=== PATIENT | male | born 1940 | race Caucasian/White ===

== ENCOUNTER 2017-12-20 23:59 | Emergency (ER) | payer MEDICARE, OTHER, SELFPAY ==
[2017-12-21] VITALS (8 sets, daily range): BP systolic 140–165; BP diastolic 75–103; PULSE 87–145; RESP 18–48; TEMP 37.1; O2SAT 92–100
[2017-12-21] MEDS: FAMOTIDINE 20 MG/50 ML PIGGYBACK 200 MG IV (02:08)
--- NOTE | 2017-12-21 03:13 | ED.ALLEREA ---
HPI - Allergic Reaction General Chief complaint: Allergic Reaction Stated complaint: Swollen Tongue Time Seen by Provider: 12/21/17 01:23 Source: patient and other (Air left) Mode of arrival: other (Air left) Limitations: no limitations History of Present Illness HPI narrative: This is a 77-year-old gentleman who comes to the emergency department for allergic reaction. Patient states about 10 o'clock this evening he had bee sting him on the side of the neck. He started having swelling of his neck, his tongue as well as itching and swelling of his hands and rash. Patient received epinephrine, Solu-Medrol prior to arrival and states that his symptoms have been improving. His tongue is still swollen but he states it is continuing to get better. Patient has not had symptoms like this before from a bee sting. He does have a history of atrial fibrillation, he denies any chest pain or shortness of breath. No wheezing. He states the itching Um and rash have improved. He states he did not wish to be transferred but they were insistent. Patient did not have any nausea or vomiting, no diarrhea. He is on medication for neuropathy, atrial fibrillation, hypertension and dyslipidemia as well as a history of CABG. Related Data Previous Rx's Medication Instructions Recorded atorvastatin 80 mg PO HS #90 tab 08/15/16 metoprolol succinate [Toprol XL] 25 mg PO QDAY #90 tab 08/15/16 colchicine 0.6 mg PO BID #60 tab 10/07/16 gabapentin [Neurontin] 0 PO SEE INSTRUCTIONS #180 cap 10/07/16 lisinopril-hydrochlorothiazide 0 PO QDAY #90 tab 10/07/16 tramadol 0 PO BID #112 tab 11/24/16 epinephrine [EpiPen 2-Caden] 0.3 mg IM Q10M PRN #1 each 12/21/17 famotidine [Pepcid] 20 mg PO BID 3 Days #6 tab 12/21/17 prednisone 50 mg PO DAILY #3 tab 12/21/17 Allergies Allergy/AdvReac Type Severity Reaction Status Date / Time No Known Drug Allergies Allergy Verified 12/21/17 00:10 Review of Systems Review of Systems All systems reviewed & are unremarkable except as noted in HPI and below ENT Ears, Nose, Mouth, and Throat: Reports lip swelling, Reports throat swelling and Reports tongue swelling Cardiovascular Denies chest pain and Denies dyspnea Respiratory Denies dyspnea and Denies wheezing Gastrointestinal Gastrointestinal: Denies cramping, Denies diarrhea, Denies nausea and Denies vomiting Genitourinary Denies difficulty urinating Integumentary/Breasts Reports rash, Reports skin swelling and Reports other (Hives) Allergic/Immunologic Reports as per HPI, Reports lip swelling, Reports throat swelling, Reports tongue swelling and Denies wheezing PFSH Surgical History Status post radical cystoprostatectomy Family History Father Cancer Heart disease Mother Blind Exam Narrative Exam Narrative: GEN: well nourished, well appearing elderly male, alert and oriented x 3, patient appears to be in mild distress. HEENT: Atraumatic, pupils are equal round reactive to light, extraocular movements are intact, nares are clear, TMs are clear with no fluid, there is no conjunctival pallor. Throat is clear without any exudates, patient does have swelling of the tongue, he has slightly dysarthric speech. No swelling of the lips. Patient also has swelling of the right side of the neck. As well as some erythema. There is no stinger present. HEART: Regular rate and rhythm without murmur, clicks, rubs. No carotid bruits, pulses are equal in upper and lower extremities LUNGS:Lungs clear to auscultation, no wheezes, rales, crackles, chest moves symmetrically ABD:bowel sounds normal, soft, non-tender, no guarding, rebound, rigidity, no masses noted, no hepatosplenomegaly MSCL: Non-tender, no muscle atrophy,full range of motion NEURO:CN 2-12 intact, sensation normal Initial Vital Signs Initial Vital Signs: Vital Signs Temperature 98.7 F 12/21/17 00:10 Pulse Rate 107 H 12/21/17 00:10 Respiratory Rate 26 H 12/21/17 00:10 Blood Pressure 140/100 H 12/21/17 00:10 Pulse Oximetry 96 12/21/17 00:10 Course Orders Ordered: ED Orders 12/21/17 EKG-12 Lead Stat Discontinued Medications Famotidine (Pepcid) 20 mg in 50 mls @ 200 mls/hr IV NOW ONE Stop: 12/21/17 01:38 Last Infusion: 12/21/17 03:02 Dose: 0 mls/hr Admin: 12/21/17 02:08 Dose: 200 mls/hr Prednisone (Deltasone 20 Mg Prepack) 1 bottle [facility] ONE Stop: 12/21/17 06:30 Reevaluation(s) Reevaluation #1: Patient continues to feel better. Patient lives on the [facility] and cannot go home tonight. Time: 03:39 Reevaluation #2: Patient has very mild swelling but is almost completely resolved. He has normal speech feels comfortable returning home. Discussed need for EpiPen as well as a short course of steroids to prevent rebound. We also discussed that this can cause his glucose to be elevated. Time: 06:21 Vital Signs - 8 hr 12/21/17 00:10 12/21/17 00:45 12/21/17 02:00 Temperature 98.7 F Pulse Rate 107 H 97 H 90 Respiratory Rate 26 H 24 18 Blood Pressure 140/100 H Blood Pressure [Right Arm] 151/103 H 152/100 H Pulse Oximetry 96 98 98 12/21/17 03:05 12/21/17 04:01 12/21/17 05:00 Temperature Pulse Rate 87 91 H 87 Respiratory Rate 20 20 18 Blood Pressure Blood Pressure [Right Arm] 161/102 H 147/75 H 161/78 H Pulse Oximetry 98 97 100 12/21/17 06:29 Temperature Pulse Rate 88 Respiratory Rate 20 Blood Pressure Blood Pressure [Right Arm] 165/80 H Pulse Oximetry 100 Discharge Plan Departure Patient Disposition: Home Clinical Impression: Anaphylaxis Instructions: DI for Anaphylaxis Activity Restrictions/Additional Instructions: Take prednisone until completely gone. Use EpiPen as directed. Return to the emergency department for recurrent symptoms including swelling of lips, mouth or throat, wheezing, stridor, difficulty breathing, chest pain, vomiting or other concerning signs or symptoms or recurrence of the rash or skin changes. Prescriptions: New famotidine [Pepcid] 20 mg tablet 20 mg PO BID 3 Days Qty: 6 RF: 0 prednisone 50 mg tablet 50 mg PO DAILY Qty: 3 RF: 0 epinephrine [EpiPen 2-Caden] 0.3 mg/0.3 mL auto-injector 0.3 mg IM Q10M PRN (Reason: anaphylaxis) Qty: 1 RF: 0 No Action atorvastatin 80 MG tablet 80 mg PO HS Qty: 90 RF: 1 metoprolol succinate [Toprol XL] 25 MG tablet extended release 24 hr 25 mg PO QDAY Qty: 90 RF: 1 colchicine 0.6 MG tablet 0.6 mg PO BID Qty: 60 RF: 0 gabapentin [Neurontin] 300 MG capsule PO SEE INSTRUCTIONS Qty: 180 RF: 0 lisinopril-hydrochlorothiazide 20 MG/25 MG tablet PO QDAY Qty: 90 RF: 1 tramadol 50 MG tablet PO BID Qty: 112 RF: 0
[2017-12-21] MEDS: predniSONE 20 MG PREPACK 1 BOTTLE MISC (06:45)
--- NOTE | 2017-12-21 08:11 | PC.NURSE ---
pt looking for his watch, looked around the pts room, not found. pt arranging his ride home, making phone calls at this time. pt betzaida.
== END 2017-12-21 08:21 | disposition home or self-care (01) ==
PROVIDERS: Emergency Provider Emergency Medicine; PCP Family Medicine
DX: T63.441A Toxic effect of venom of bees, accidental (unintentional), initial encounter (principal); T78.2XXA Anaphylactic shock, unspecified, initial encounter
CPT/HCPCS: 93005; 93010; 96365; 99283; 99284

== ENCOUNTER → 2018-10-12 11:57 | Outpatient (CLI) | payer MEDICARE, OTHER, SELFPAY ==
--- NOTE | 2018-10-12 | DI.CT.S_ITS ---
PROCEDURE: CT ABDOMEN PELVIS WO/W CON INDICATIONS: gross hematuria TECHNIQUE: Optional 5 mm thick noncontrast images acquired from the diaphragm to the symphysis pubis. After the administration of intravenous contrast, 5 mm thick images acquired from the diaphragm to the symphysis pubis after a 10-minute delay. 2 mm thick coronal and sagittal reformats were then performed of the kidneys and ureters. For radiation dose reduction, the following was used: automated exposure control, adjustment of mA and/or kV according to patient size. COMPARISON: None. FINDINGS: Image quality: Excellent. Lung bases: Lung bases are clear. Heart size is normal. Coronary artery calcifications are present. Urinary system: Both kidneys are normal in size, without hydronephrosis or nephrolithiasis on pre-contrast images. No perinephric fat stranding. There is normal bilateral renal enhancement. Renal calyces appear normal in morphology when filled with contrast. Opacified portions of both ureters demonstrate normal caliber. Bladder decompressed otherwise unremarkable. No calcified bladder stones. Simple appearing right renal cysts. Simple appearing left renal cyst. Other solid organs: Liver is normal in size and enhancement. Gallbladder unremarkable. Biliary system is non dilated. Pancreas enhances normally. Spleen is normal in size and enhancement. There is bilateral diffuse nodular left adrenal hyperplasia. Peritoneum and bowel: Bowel loops demonstrate normal wall thickness and caliber. No free fluid or air. Colonic diverticulosis is seen without evidence of acute complication. The appendix is within normal limits Nodes and vessels: No retroperitoneal or mesenteric adenopathy by size criteria. Aorta and inferior vena cava are normal in size. Abdominal wall: Small fat-containing umbilical hernia. Pelvis: No pathologic free pelvic fluid. No inguinal hernias or adenopathy. Bones: No suspicious bony lesions. No vertebral body compression fractures. IMPRESSION: No nephrolithiasis. No evidence of urinary obstruction. No visible etiology of hematuria. However, given the decompressed state of the bladder cannot exclude cystitis therefore please correlate clinically and with urinalysis data. Simple appearing bilateral renal cysts. Incidental colonic diverticulosis. Coronary artery disease. Additional chronic and incidental findings as above. Dictated by: Robert Prince M.D. on 10/12/2018 at 14:31 Approved by: Robert Prince M.D. on 10/12/2018 at 14:40
[2018-10-12 12:38] LABS: Estimated Glomerular Filt Rate 58.6 mL/min (>60)
== END ==
PROVIDERS: Family Provider Family Medicine; PCP Family Medicine; Visit Provider Physician Assistant
DX: R31.0 Gross hematuria (principal); N28.1 Cyst of kidney, acquired; K57.90 Diverticulosis of intestine, part unspecified, without perforation or abscess without bleeding; I25.10 Atherosclerotic heart disease of native coronary artery without angina pectoris
CPT/HCPCS: 36415; 74178; 82565; Q9967

== ENCOUNTER 2021-08-30 11:28 | Emergency (ER) | payer MEDICARE, OTHER, SELFPAY ==
[2021-08-30 11:30] VITALS: BP 200/91; PULSE 66; RESP 16; TEMP 36.9; O2SAT 97; BMI 32.8
--- NOTE | 2021-08-30 11:36 | ED_ITS ---
HPI - General Adult General Chief complaint: Nasal Problem Stated complaint: Nose Bleed Time Seen by Provider: 08/30/21 11:36 History of Present Illness HPI narrative: 81-year-old gentleman with history of atrial fibrillation for which he is anticoagulated on Xarelto presents with nosebleed. Initially started on the right side he had a cyst short nose bleed yesterday that responded to pressure. This 1 started approximately 6:00 a.m. he help pressure himself for a number of hours. [facility] [place] were contacted and they used Afrin as well as TXA soaked pads and were unable to control the bleeding. Blood pressure is slightly elevated and he has not taken his morning medications. He is complaining of no headache, chest pain, nausea or vomiting despite the amount of blood that he swallowed. He is having no dizziness and does not complain of being lightheaded. Current medications include potassium 20 mEq daily farxiga 10mg Furosemide 20 mg Digoxin 1.25 mil equivalents Glipizide ER 10 mg Metformin 500 mg b.i.d. Metoprolol succinate 100 mg b.i.d. Tramadol 50 mg b.i.d. Atorvastatin 80 mg Pantoprazole 40 mg Xarelto 20 mg Lisinopril 10 mg Gabapentin 300 mg, 5 at HS, 4 at 3:00 a.m. 81 mg aspirin Related Data Previous Rx's Medication Instructions Recorded atorvastatin 80 mg tablet 80 mg PO HS #90 tabs 08/15/16 metoprolol succinate 25 mg 25 mg PO QDAY #90 tabs 08/15/16 tablet,extended release 24 hr (Toprol XL) colchicine 0.6 mg tablet 0.6 mg PO BID #60 tabs 10/07/16 gabapentin 300 mg capsule 0 PO SEE INSTRUCTIONS #180 caps 10/07/16 (Neurontin) lisinopril 20 0 PO QDAY #90 tabs 10/07/16 mg-hydrochlorothiazide 25 mg tablet tramadol 50 mg tablet 0 PO BID #112 tabs 11/24/16 epinephrine 0.3 mg/0.3 mL 0.3 mg (0.3 mL) IM Q10M PRN 12/21/17 injection, auto-injector (EpiPen anaphylaxis #1 ea 2-Caden) prednisone 50 mg tablet 50 mg PO DAILY #3 tabs 12/21/17 Allergies Allergy/AdvReac Type Severity Reaction Status Date / Time No Known Drug Allergies Allergy Verified 12/21/17 00:10 Review of Systems Review of Systems Narrative: Remainder of complete review of systems is otherwise unremarkable except for that included in the HPI. Patient History Medical History (Updated 08/30/21 @ 13:38 by Merari French MD) Alcohol abuse (06/29/15) Atrial fibrillation Coronary artery disease involving kaw coronary artery of kaw heart without angina pectoris (06/29/15) Essential hypertension with goal blood pressure less than 140/90 (06/29/15) History of coronary artery bypass surgery (06/29/15) Malignant neoplasm of prostate (06/29/15) Mixed hyperlipidemia (06/29/15) Obstructive sleep apnea syndrome (06/29/15) Surgical History Status post radical cystoprostatectomy Family History (Updated 06/28/16 @ 00:00 by Conversion Provider) Father Cancer Heart disease Mother Blind alcohol intake frequency: 3 or more drinks per day Substance Use Type: does not use Exam Initial Vital Signs Initial Vital Signs: Vital Signs Temperature 98.4 F 08/30/21 11:30 Pulse Rate 66 08/30/21 11:30 Respiratory Rate 16 08/30/21 11:30 Blood Pressure 200/91 H 08/30/21 11:30 Pulse Oximetry 97 08/30/21 11:30 Oxygen Delivery Method 08/30/21 11:30 General: Healthy appearing, in no acute distress. Able to give a complete and coherent history. Well-nourished well-developed HEENT: Moist mucous membranes, normal sclera with reactive pupils, hard of hearing. Continued bleeding from the right nostril despite clamp in place. Respiratory: Lungs are clear to auscultation, no wheezing no rales no rhonchi. Full and symmetrical air movement Cardiac: Regular rate and rhythm no murmurs no bruits Abdomen: Soft, nontender, good bowel tones, no flank pain Skin: Warm and dry, no rashes Neurologic: Grossly neurologically intact with no obvious asymmetries or abnormalities Extremities: No trauma, well perfused Psych: Cooperative, appropriate insight and affect Course Orders Ordered: ED Orders 08/30/21 11:34 CBC Auto Diff [Complete Blood Count AUTO DIFF] Stat CMP [Comprehensive Metabolic Panel] Stat Discontinued Medications Metoprolol Succinate (Metoprolol Er 50 Mg Tablet) 100 mg PO NOW ONE Stop: 08/30/21 11:44 Last Admin: 08/30/21 11:56 Dose: 100 mg Documented By: GRAHAM Metoprolol Tartrate (Metoprolol Tartrate 5 Mg/5 Ml Inj) 5 mg IV NOW ONE Stop: 08/30/21 11:44 Last Admin: 08/30/21 11:56 Dose: 5 mg Documented By: GRAHAM Ondansetron HCl (Ondansetron 4 Mg/2 Ml Inj) 4 mg IV NOW ONE Stop: 08/30/21 11:45 Last Admin: 08/30/21 11:56 Dose: 4 mg Documented By: GRAHAM Vital Signs Vital signs: Vital Signs - 8 hr 08/30/21 11:30 08/30/21 11:56 Temperature 98.4 F Pulse Rate 66 62 Respiratory Rate 16 Blood Pressure 200/91 H 200/91 H Pulse Oximetry 97 Oxygen Delivery Method Room Air Medical Decision Making Lab Data Result diagrams: 08/30/21 11:34 08/30/21 11:34 Labs: Lab Results 08/30/21 08/30/21 Range/Units 11:34 11:34 WBC 8.1 (4.5-11.0) X10^3/uL RBC 4.20 L (4.5-5.9) X10^6/uL Hgb 13.4 L (13.5-17.5) g/dL Hct 40.7 L (41-53) % MCV 96.9 (80-100) fL MCH 31.9 (26-34) PG MCHC 32.9 (30-36) % RDW 14.4 (11.6-14.8) % Plt Count 225 (150-400) X10^3/uL Neut % (Auto) 58.5 (50-75) % Lymph % (Auto) 26.1 (25-40) % [place] % (Auto) 11.4 (3-14) % Eos % (Auto) 3.2 (2-4) % Baso % (Auto) 0.8 (0-2) % Neut # (Auto) 4700 (2285-2340) /uL Lymph # (Auto) 2100 (9706-5640) /uL [place] # (Auto) 900 (0-900) /uL Eos # (Auto) 300 (0-450) /uL Baso # (Auto) 100 (0-100) /uL Sodium 137 (137-145) mmol/L Potassium 5.5 H (3.4-5.1) mmol/L Chloride 104 (98-107) mmol/L Carbon Dioxide 23 (22-32) mmol/L BUN 20 (9-20) mg/dL Creatinine 1.38 H (0.66-1.25) mg/dL Estimated GFR 51 L (>60) mL/min BUN/Creatinine Ratio 14.5 (6-22) Glucose 176 H (80-110) mg/dL Calcium 9.1 (8.4-10.2) mg/dL Total Bilirubin 0.7 (0.2-1.3) mg/dL AST 41 (17-59) IU/L ALT 26 (<50) IU/L Alkaline Phosphatase 79 (38-126) U/L Total Protein 7.2 (6.3-8.2) g/dL Albumin 4.5 (3.5-5.0) g/dL Globulin 2.7 (1.7-4.1) g/dL Albumin/Globulin Ratio 1.7 (1.0-2.8) MDM Narrative Medical decision making narrative: 81-year-old gentleman with acute onset nose bleed this morning. Blood pressure is slightly elevated and he has been given his metoprolol to see if this will influence his bleeding. A 5 cm rhino rocket is placed into the right side and he is now bleeding around to the left side. Labs do not show acute abnormalities and no significant anemia. Will talk with ENT physician about options at this time. Dr. Rios recommends bring the patient to his office and he will evaluate him in clinic this afternoon. Patient is updated. Will help him via wheelchair to the ENT office and the patient's family is also notified that they can meet him at the ENT office. The remainder of his medications that were to be administered this morning are given to him. I identified the Xarelto for him and asked him to hold this for 3 days. Discharge Plan Departure Patient Disposition: Home Clinical Impression: Bleeding from the nose Instructions: DI for Nosebleed Activity Restrictions/Additional Instructions: Thank you for coming in today Your blood work was reassuring. You were given your morning medications including her blood pressure medications Your blood pressure is been slightly elevated but your blood count is stable suggesting that you are not, literally, bleeding to . I did place a nasal pack in the right side however I am concerned that you are still bleeding. I spoke with Dr. Rios, our Ear Nose and Throat physician, and he would like to see you in his clinic right now. We will [facility] He will be the person to help with definitive treatment Please do not take your Xarelto for the next 3 days. I sent you a text from your own phone with a little Travtar pitcture that shows you what the Xarelto pill looks like. It is in your evening container. Good luck Prescriptions: No Action atorvastatin 80 MG tablet 80 mg PO HS Qty: 90 1RF metoprolol succinate [Toprol XL] 25 MG tablet extended release 24 hr 25 mg PO QDAY Qty: 90 1RF colchicine 0.6 MG tablet 0.6 mg PO BID Qty: 60 0RF gabapentin [Neurontin] 300 MG capsule 0 PO SEE INSTRUCTIONS Qty: 180 0RF lisinopril-hydrochlorothiazide 20 MG/25 MG tablet 0 PO QDAY Qty: 90 1RF tramadol 50 MG tablet 0 PO BID Qty: 112 0RF prednisone 50 mg tablet 50 mg PO DAILY Qty: 3 0RF epinephrine [EpiPen 2-Caden] 0.3 mg/0.3 mL auto-injector 0.3 mg IM Q10M PRN (Reason: anaphylaxis) Qty: 1 0RF Rx Instructions: until response Referrals: Hardy Basurto MD [Primary Care Provider] -
[2021-08-30 11:51] LABS: Add Manual Diff / Slide Review NO; Basophils Absolute Auto 100 /uL (0-100); Basophils Percent Auto 0.8 % (0-2); Eosinophils Absolute Auto 300 /uL (0-450); Eosinophils Percent Auto 3.2 % (2-4); Hematocrit 40.7 % (41-53); Hemoglobin 13.4 g/dL (13.5-17.5); Lymphocytes Absolute Auto 2100 /uL (1100-4500); Lymphocytes Percent Auto 26.1 % (25-40); Mean Corpuscular HGB Conc 32.9 % (30-36); Mean Corpuscular Hemoglobin 31.9 PG (26-34); Mean Corpuscular Volume 96.9 fL (80-100); Monocytes Absolute Auto 900 /uL (0-900); Monocytes Percent Auto 11.4 % (3-14); Neutrophils Absolute Auto 4700 /uL (1500-7000); Neutrophils Percent Auto 58.5 % (50-75); Platelet Count 225 X10^3/uL (150-400); Red Cell Distribution Width 14.4 % (11.6-14.8); White Blood Cell Count 8.1 X10^3/uL (4.5-11.0)
[2021-08-30 11:56] VITALS: BP 200/91; PULSE 62
[2021-08-30] MEDS: METOPROLOL TARTRATE 5 MG/5 ML INJ IV (11:56)
[2021-08-30] MEDS: METOPROLOL ER 50 MG TABLET 100 MG PO (11:56)
[2021-08-30] MEDS: ONDANSETRON 4 MG/2 ML INJ IV (11:56)
[2021-08-30 11:57] LABS: Alanine Aminotransferase 26 IU/L (<50); Albumin 4.5 g/dL (3.5-5.0); Albumin Globulin Ratio 1.7 (1.0-2.8); Alkaline Phosphatase 79 U/L (38-126); Aspartate Aminotransferase 41 IU/L (17-59); BUN Creatinine Ratio 14.5 (6-22); Bilirubin Total 0.7 mg/dL (0.2-1.3); Blood Urea Nitrogen 20 mg/dL (9-20); Calcium 9.1 mg/dL (8.4-10.2); Carbon Dioxide 23 mmol/L (22-32); Chloride 104 mmol/L (98-107); Estimated Glomerular Filt Rate 51 mL/min (>60); Globulin 2.7 g/dL (1.7-4.1); Glucose 176 mg/dL (80-110); Sodium 137 mmol/L (137-145); Total Protein 7.2 g/dL (6.3-8.2)
[2021-08-30 11:58] LABS: HEMOLYSIS 76 (0-50); Potassium 5.5 mmol/L (3.4-5.1)
== END 2021-08-30 14:10 | disposition home or self-care (01) ==
PROVIDERS: Emergency Provider Emergency Medicine; Family Provider Family Medicine; PCP Family Medicine
DX: R04.0 Epistaxis (principal); Z79.01 Long term (current) use of anticoagulants
CPT/HCPCS: 80053; 85025; 96374; 96375; 99283; 99284; J2405

== ENCOUNTER 2024-03-23 22:28 | Emergency (ER) | payer MEDICARE, OTHER, SELFPAY ==
[2024-03-23 22:31] VITALS: BP 124/66; PULSE 62; RESP 18; TEMP 36.8; O2SAT 94; BMI 27.3
[2024-03-23 22:34] VITALS: PULSE 65; RESP 27
--- NOTE | 2024-03-23 22:34 | DI.CT.S_ITS ---
PROCEDURE: CT HEAD/BRAIN WO CON INDICATIONS: fall on thinners TECHNIQUE: Noncontrast 4.5 mm thick angled axial sections acquired from the foramen magnum to the vertex, with coronal and sagittal reformats. For radiation dose reduction, the following was used: automated exposure control, adjustment of mA and/or kV according to patient size. COMPARISON: None. FINDINGS: Image quality: Diagnostic CSF spaces: Basal cisterns are patent. Lateral ventricles are symmetric. Volume: Vascular calcifications. Periventricular white matter disease is commonly seen with chronic microangiopathy. Volume loss is present. These findings are moderate Brain: There are small bilateral low density extra-axial collections along side both cerebral hemispheres. No acute hemorrhagic component is present. No intraparenchymal hemorrhage. No gross loss of coppola-white differentiation. Craniofacial structures: Possible small osteoma in the right maxillary sinus. Mastoids are clear. 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 There is no acute appearing hemorrhagic component. No significant mass effect. Right supraorbital soft tissue contusion. Dictated by: rIon Phillips M.D. on 03/23/2024 at 23:03 Approved by: Iron Phillips M.D. on 03/23/2024 at 23:05
--- NOTE | 2024-03-23 22:34 | DI.CT.S_ITS ---
PROCEDURE: CT CERVICAL SPINE WO CON INDICATIONS: fall on thinners TECHNIQUE: Noncontrast 3 mm thick sections acquired from the skull base to the T4 level. Sagittal and coronal reformats were then constructed. For radiation dose reduction, the following was used: automated exposure control, adjustment of mA and/or kV according to patient size. COMPARISON: None. FINDINGS: Image quality: Diagnostic Bones: Straightening of the normal cervical lordosis. Moderate spondylotic changes. Lucency is seen at the base of the odontoid process, probably senescent. There is no displaced cortical break. No traumatic subluxation. Soft tissues: No apical pneumothorax. No pathologic prevertebral soft tissue swelling. Vascular calcifications. Prominent degenerative pannus around the C1-C2 articulation. IMPRESSION: No displaced fracture or traumatic subluxation. Moderate degenerative changes. If there is high concern for further derangement, consider MRI evaluation. Dictated by: Iron Phillips M.D. on 03/23/2024 at 23:05 Approved by: Iron Phillips M.D. on 03/23/2024 at 23:07
[2024-03-23 22:35] VITALS: BP 124/66; PULSE 67
--- NOTE | 2024-03-23 22:55 | ED_ITS ---
HPI - General Adult General Chief complaint: Weakness Stated complaint: fall Time Seen by Provider: 03/23/24 22:34 Source: patient Mode of arrival: EMS Limitations: no limitations History of Present Illness HPI narrative: Patient was an 84-year-old male. He was alert and oriented x3. Was brought in by EMS from [place] for evaluation of multiple falls. He does admit to drinking alcohol on a daily basis. He was on anticoagulation for atrial fibrillation. He states it a couple days ago while he was in the shower he slipped on the wet floor and fell and hit the right side of his head. No loss of consciousness but he did sustain bruising around his right eye. He states that this evening he was walking outside in the grass. He will once again lost his balance and fell forward scraping both of his knees. He reports no injuries from today's event but he could not get up. He contacted a friend/automation software engineer who contacted EMS. Here in the emergency department with the patient reports no discomfort. No head pain, neck pain, chest pain, shortness of breath, abdominal, extremity injuries. Related Data Previous Rx's Medication Instructions Recorded atorvastatin 80 mg tablet 80 mg PO HS #90 tabs 08/15/16 metoprolol succinate 25 mg 25 mg PO QDAY #90 tabs 08/15/16 tablet,extended release 24 hr (Toprol XL) colchicine 0.6 mg tablet 0.6 mg PO BID #60 tabs 10/07/16 gabapentin 300 mg capsule 0 PO SEE INSTRUCTIONS #180 caps 10/07/16 (Neurontin) lisinopril 20 0 PO QDAY #90 tabs 10/07/16 mg-hydrochlorothiazide 25 mg tablet tramadol 50 mg tablet 0 PO BID #112 tabs 11/24/16 epinephrine 0.3 mg/0.3 mL 0.3 mg (0.3 mL) IM Q10M PRN 12/21/17 injection, auto-injector (EpiPen anaphylaxis #1 ea 2-Caden) prednisone 50 mg tablet 50 mg PO DAILY #3 tabs 12/21/17 Allergies Allergy/AdvReac Type Severity Reaction Status Date / Time No Known Drug Allergies Allergy Verified 12/21/17 00:10 Review of Systems Review of Systems ROS Unobtainable: All systems reviewed & are unremarkable except as noted in HPI and below Patient History Medical History Atrial fibrillation History of coronary artery bypass surgery (06/29/15) Coronary artery disease involving [place] coronary artery of [place]one heart without angina pectoris (06/29/15) Malignant neoplasm of prostate (06/29/15) Obstructive sleep apnea syndrome (06/29/15) Mixed hyperlipidemia (06/29/15) Essential hypertension with goal blood pressure less than 140/90 (06/29/15) Alcohol abuse (06/29/15) Surgical History Status post radical cystoprostatectomy Family History (Updated 06/28/16 @ 00:00 by Conversion Provider) Father Cancer Heart disease Mother Blind Social History Smoking Status: Current every day smoker Smoking Status: Current every day smoker tobacco type: cigars alcohol intake frequency: 3 or more drinks per day Alcohol type: wine Exam Initial Vital Signs Initial Vital Signs: Vital Signs Temperature 98.3 F 03/23/24 22:31 Pulse Rate 62 03/23/24 22:31 Respiratory Rate 18 03/23/24 22:31 Blood Pressure 124/66 03/23/24 22:31 Pulse Oximetry 94 03/23/24 22:31 Oxygen Delivery Method Room Air 03/23/24 22:31 Const General: cooperative, comfortable and No ill appearing HENMT Head: normal to inspection and normocephalic Eyes Other: Contusion around right eye Chest Chest: No crepitus and No tenderness Resp Effort & Inspection: normal respiratory effort Auscultation: clear to auscultation bilaterally Cardio Rate: regular rate Rhythm: abnormal rhythm GI Inspection: normal to inspection Back/Spine/Pelvis Cervical Spine: No cervical spinal tenderness Skin Other: Contusion around the right eye, superficial abrasions to bilateral knees Neuro General: patient alert, patient awake, patient oriented x3 and moves all extremities Speech: speech normal Extrem Other: Superficial abrasions to both knees. Scores GCS Ting coma scale eye opening: Spontaneous Ting coma scale verbal response: Orientated Bartlett coma scale motor response: Obey commands Ting coma scale total score: 15 Course Orders Ordered: ED Orders 03/23/24 22:34 CT cervical spine wo con Stat CT head/brain wo con Stat 03/23/24 22:35 Complete Blood Count AUTO DIFF Stat Comprehensive Metabolic Panel Stat Ethanol (ETOH) Stat Lipase Stat 03/23/24 22:36 EKG-12 Lead Stat 03/23/24 23:23 Urine Culture Stat Urine Microscopic Stat Discontinued Medications Thiamine HCl 100 mg/ Sodium (Chloride) 101 mls @ 404 mls/hr IV NOW ONE Stop: 03/23/24 22:39 Last Infusion: 03/23/24 23:25 Dose: Infused Documented By: Admin: 03/23/24 22:56 Dose: 404 mls/hr Documented By: DALI Sodium Chloride (Normal Saline 0.9%) 1,000 mls @ 1,000 mls/hr IV BOLUS ONE Stop: 03/24/24 00:06 Last Infusion: 03/24/24 00:49 Dose: Infused Documented By: Admin: 03/23/24 23:27 Dose: 1,000 mls/hr Documented By: DAKOTA Vital Signs Vital signs: Vital Signs - 8 hr 03/23/24 22:31 03/23/24 22:34 03/23/24 22:35 Temperature 98.3 F Pulse Rate 62 65 Respiratory Rate 18 27 H Blood Pressure 124/66 124/66 Pulse Oximetry 94 Oxygen Delivery Method Room Air 03/23/24 22:35 03/23/24 22:59 03/23/24 22:59 Temperature Pulse Rate 67 57 L Respiratory Rate 23 Blood Pressure 141/63 H Pulse Oximetry 99 Oxygen Delivery Method 03/23/24 23:00 03/23/24 23:01 03/23/24 23:01 Temperature Pulse Rate 55 L 57 L Respiratory Rate 20 19 Blood Pressure 115/59 L Pulse Oximetry 100 100 Oxygen Delivery Method 03/24/24 00:53 03/24/24 00:54 03/24/24 00:54 Temperature Pulse Rate 67 65 Respiratory Rate Blood Pressure 114/75 Pulse Oximetry 98 97 Oxygen Delivery Method Room Air 03/24/24 01:00 03/24/24 01:01 03/24/24 01:01 Temperature Pulse Rate 57 L 60 Respiratory Rate Blood Pressure 119/56 L Pulse Oximetry 97 97 Oxygen Delivery Method Room Air Medical Decision Making Lab Data Lab results reviewed: Yes I reviewed the patient's lab results. 03/23/24 22:35 03/23/24 22:35 Labs: Lab Results 03/23/24 03/23/24 Range/Units 22:35 23:23 WBC 8.3 (4.5-11.0) X10^3/uL RBC 3.82 L (4.5-5.9) X10^6/uL Hgb 12.4 L (13.5-17.5) g/dL Hct 37.2 L (41-53) % MCV 97.4 (80-100) fL MCH 32.3 (26-34) PG MCHC 33.2 (30-36) % RDW 14.5 (11.6-14.8) % Plt Count 227 (150-400) X10^3/uL Neut % (Auto) 76.8 H (50-75) % Lymph % (Auto) 12.3 L (25-40) % [place] % (Auto) 7.6 (3-14) % Eos % (Auto) 1.3 L (2-4) % Baso % (Auto) 2.0 (0-2) % Neut # (Auto) 6300 (3638-3568) /uL Lymph # (Auto) 1000 L (5185-1669) /uL [place] # (Auto) 600 (0-900) /uL Eos # (Auto) 100 (0-450) /uL Baso # (Auto) 200 H (0-100) /uL Sodium 138 (137-145) mmol/L Potassium 5.6 H (3.4-5.1) mmol/L Chloride 104 (98-107) mmol/L Carbon Dioxide 23 (22-32) mmol/L BUN 40 H (9-20) mg/dL Creatinine 3.06 H (0.66-1.25) mg/dL Estimated GFR 19 L (>60) mL/min BUN/Creatinine Ratio 13.1 (6-22) Glucose 114 H (80-110) mg/dL Calcium 10.1 (8.4-10.2) mg/dL Total Bilirubin 0.6 (0.2-1.3) mg/dL AST 26 (17-59) IU/L ALT 21 (<50) IU/L Alkaline Phosphatase 33 L (38-126) U/L Total Protein 7.1 (6.3-8.2) g/dL Albumin 4.6 (3.5-5.0) g/dL Globulin 2.5 (1.7-4.1) g/dL Albumin/Globulin Ratio 1.8 (1.0-2.8) Lipase 241 (23-300) U/L Urine RBC None seen (0-5/HPF) Urine WBC 0-1/hpf (0-5/HPF) Ur Squamous Epith Cells 0-1 /hpf (0-5/HPF) Urine Bacteria Many (>30) H (None) Ur Culture Indicated? Specimen cultured Vol Urine Centrifuged 10ml (spun) Ethyl Alcohol < 10 ( - 10) mg/dL Urine Dip Bedside Urine Glucose 500 mg/dl Bedside Urine Bilirubin - Negative Bedside Urine Ketone - Negative Urine Specific [place] 1.015 Bedside Urine Occult Blood - Negative Bedside Urine pH 5.5 Bedside Urine Protein - Negative Bedside Urine Urobilinogen - Negative Bedside Urine Nitrite + Positive Bedside Urine Leukocytes - Negative Esterase Point of care testing: Urine Dip Bedside Urine Glucose 500 mg/dl Bedside Urine Bilirubin - Negative Bedside Urine Ketone - Negative Urine Specific [place] 1.015 Bedside Urine Occult Blood - Negative Bedside Urine pH 5.5 Bedside Urine Protein - Negative Bedside Urine Urobilinogen - Negative Bedside Urine Nitrite + Positive Bedside Urine Leukocytes - Negative Esterase Imaging Data CT - cervical spine: Radiologist's Impression: PROCEDURE: CT CERVICAL SPINE WO CON INDICATIONS: fall on thinners TECHNIQUE: Noncontrast 3 mm thick sections acquired from the skull base to the T4 level. Sagittal and coronal reformats were then constructed. For radiation dose reduction, the following was used: automated exposure control, adjustment of mA and/or kV according to patient size. COMPARISON: None. FINDINGS: Image quality: Diagnostic Bones: Straightening of the normal cervical lordosis. Moderate spondylotic changes. Lucency is seen at the base of the odontoid process, probably senescent. There is no displaced cortical break. No traumatic subluxation. Soft tissues: No apical pneumothorax. No pathologic prevertebral soft tissue swelling. Vascular calcifications. Prominent degenerative pannus around the C1-C2 articulation. IMPRESSION: No displaced fracture or traumatic subluxation. Moderate degenerative changes. If there is high concern for further derangement, consider MRI evaluation. CT scan - head: Radiologist's Impression: PROCEDURE: CT HEAD/BRAIN WO CON INDICATIONS: fall on thinners TECHNIQUE: Noncontrast 4.5 mm thick angled axial sections acquired from the foramen magnum to the vertex, with coronal and sagittal reformats. For radiation dose reduction, the following was used: automated exposure control, adjustment of mA and/or kV according to patient size. COMPARISON: None. FINDINGS: Image quality: Diagnostic CSF spaces: Basal cisterns are patent. Lateral ventricles are symmetric. Volume: Vascular calcifications. Periventricular white matter disease is commonly seen with chronic microangiopathy. Volume loss is present. These findings are moderate Brain: There are small bilateral low density extra-axial collections along side both cerebral hemispheres. No acute hemorrhagic component is present. No intraparenchymal hemorrhage. No gross loss of coppola-white differentiation. Craniofacial structures: Possible small osteoma in the right maxillary sinus. Mastoids are clear. 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 There is no acute appearing hemorrhagic component. No significant mass effect. Right supraorbital soft tissue contusion. ECG Data Attestation: I personally reviewed and interpreted this ECG as follows: Interpretation: Atrial fibrillation Ventricular rate of 52 Left axis deviation Right bundle-branch block MDM Narrative Medical decision making narrative: Patient was alert and oriented x3. GCS of 15. Alcohol level is negative. Head CT is unremarkable. Cervical spine CT is unremarkable. He ambulated to the bathroom. He states that he actually did not want to come to the emergency department but he was forced to come given the multiple falls and he has had recently. He states that both of the falls have been because he just lost his balance. He does use a cane at baseline and does have balance issues. He was given thiamine given his history of alcohol use. Given the time a day patient could not get a ride back to [place] so he was kept in the emergency department overnight and will discharge in the morning with return precautions. Discharge Plan Departure Patient Disposition: Home Clinical Impression: Contusion of eye, right, Atrial fibrillation, Abrasion of knee Instructions: Exercises to Help Prevent Falls, How to Prevent Falls Activity Restrictions/Additional Instructions: I do recommend that you continue to take all of your medications as directed. It was important that you follow-up with the primary care doctor. You can contact [phone] during business hours Monday through Monday to help he was establish a primary doctor if you wish. Return to the emergency department for new symptoms. Prescriptions: No Action atorvastatin 80 MG tablet 80 mg PO HS Qty: 90 1RF metoprolol succinate [Toprol XL] 25 MG tablet extended release 24 hr 25 mg PO QDAY Qty: 90 1RF colchicine 0.6 MG tablet 0.6 mg PO BID Qty: 60 0RF gabapentin [Neurontin] 300 MG capsule 0 PO SEE INSTRUCTIONS Qty: 180 0RF lisinopril-hydrochlorothiazide 20 MG/25 MG tablet 0 PO QDAY Qty: 90 1RF tramadol 50 MG tablet 0 PO BID Qty: 112 0RF prednisone 50 mg tablet 50 mg PO DAILY Qty: 3 0RF epinephrine [EpiPen 2-Caden] 0.3 mg/0.3 mL auto-injector 0.3 mg IM Q10M PRN (Reason: anaphylaxis) Qty: 1 0RF Rx Instructions: until response Referrals: Miscellaneous,Doctor, MD [Primary Care Provider] - Stand Alone Forms: Patient Portal/API/Survey
[2024-03-23 22:56] LABS: Alanine Aminotransferase 21 IU/L (<50); Albumin 4.6 g/dL (3.5-5.0); Albumin Globulin Ratio 1.8 (1.0-2.8); Alkaline Phosphatase 33 U/L (38-126); Aspartate Aminotransferase 26 IU/L (17-59); BUN Creatinine Ratio 13.1 (6-22); Bilirubin Total 0.6 mg/dL (0.2-1.3); Blood Urea Nitrogen 40 mg/dL (9-20); Calcium 10.1 mg/dL (8.4-10.2); Carbon Dioxide 23 mmol/L (22-32); Chloride 104 mmol/L (98-107); Estimated Glomerular Filt Rate 19 mL/min (>60); Ethanol (ETOH) < 10 mg/dL; Globulin 2.5 g/dL (1.7-4.1); Glucose 114 mg/dL (80-110); HEMOLYSIS < 15 (0-50); Lipase 241 U/L (23-300); Sodium 138 mmol/L (137-145); Total Protein 7.1 g/dL (6.3-8.2)
[2024-03-23] MEDS: THIAMINE 100 MG in SODIUM CHLORIDE 0.9% 100 ML 404 MG IV (22:56)
[2024-03-23 22:59] VITALS: BP 141/63; PULSE 57; RESP 23; O2SAT 99
[2024-03-23 23:00] VITALS: PULSE 55; RESP 20; O2SAT 100
[2024-03-23 23:01] VITALS: BP 115/59; PULSE 57; RESP 19; O2SAT 100
[2024-03-23 23:01] LABS: Add Manual Diff / Slide Review NO; Basophils Absolute Auto 200 /uL (0-100); Eosinophils Absolute Auto 100 /uL (0-450); Eosinophils Percent Auto 1.3 % (2-4); Hematocrit 37.2 % (41-53); Hemoglobin 12.4 g/dL (13.5-17.5); Lymphocytes Absolute Auto 1000 /uL (1100-4500); Lymphocytes Percent Auto 12.3 % (25-40); Mean Corpuscular HGB Conc 33.2 % (30-36); Mean Corpuscular Hemoglobin 32.3 PG (26-34); Mean Corpuscular Volume 97.4 fL (80-100); Monocytes Absolute Auto 600 /uL (0-900); Monocytes Percent Auto 7.6 % (3-14); Neutrophils Absolute Auto 6300 /uL (1500-7000); Neutrophils Percent Auto 76.8 % (50-75); Platelet Count 227 X10^3/uL (150-400); Red Blood Cell Count 3.82 X10^6/uL (4.5-5.9); Red Cell Distribution Width 14.5 % (11.6-14.8); White Blood Cell Count 8.3 X10^3/uL (4.5-11.0)
[2024-03-23 23:02] LABS: Potassium 5.6 mmol/L (3.4-5.1)
--- NOTE | 2024-03-23 23:06 | EKG_ITS ---
[place] [address] [address] [place] [id number] Test Date: 2024-03-23 Pat Name: Tommy Singh Department: 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
[2024-03-23] MEDS: SODIUM CHLORIDE 0.9% 1,000 ML 1000 ML IV (23:27)
[2024-03-23 23:54] LABS: Bacteria Urine Many (>30); Culture Indicated Urine Specimen Cultured; RBC Urine None Seen (0-5/HPF); Squamous Epithelial Cell Urine 0-1 /HPF (0-5/HPF); Urine Volume 10mL (spun); WBC Urine 0-1/HPF (0-5/HPF)
[2024-03-24] VITALS (9 sets, daily range): BP systolic 105–129; BP diastolic 54–75; PULSE 50–80; RESP 16–18; TEMP 36.4–36.6; O2SAT 93–99
[2024-03-24] MEDS: GABAPENTIN 600 MG TABLET 1200 MG PO (05:28)
--- NOTE | 2024-03-24 05:50 | PC.NURSE ---
Pt states that he will try to arrange a ride back home. Currently will charge his cell phone at nursing station for at least 30 minutes.
--- NOTE | 2024-03-24 06:27 | PC.NURSE ---
Pt usually ambluates at home with a cane. However, while in facility pt gait unsteady. Pt would benefit from use of a walker.
--- NOTE | 2024-03-24 07:51 | PC.NURSE ---
ambulated independently, with cane, from bed/room to restroom and back, steady gate.
--- NOTE | 2024-03-24 08:22 | PC.NURSE ---
Plan to DC patient with [facility] to bring to [facility] for 1010 trip to [place]. arranged transport for pt with friends Dorcas and Antonio when pt gets off [facility] for transport home.
--- NOTE | 2024-03-24 08:23 | PC.NURSE ---
Addendum entered by Rachael Meek CNA 03/24/24 11:31: [employer] picked patient up at 1130. Addendum entered by Rachael Meek CNA 03/24/24 10:08: at 0950 this LINEMAN called to check on the taxi arrival. The taxi service [employer] said we got a bit busy, I can be there in a minute. about five minutes later [employer] called back and I spoke with Chris who stated I locked myself out of my house and will be unable to pickling machine operator at this time. This LINEMAN handed the phone off to the charge nurse who arranged the next pickling machine operator time of 1130. This LINEMAN called Luis Alberto back to update them of the situation and agreed upon the plan of a [place] arrival time of 1330. Patient was brought back to room 3 to wait for taxi. Original Note: Transportation from ED to [facility] arranged through [employer] with a pickling machine operator time of 0945, ferry to leave terminal at 1010 and arrive at [place] at 1105 and a ride with family friend's Luis Alberto arranged to pick patient up from [facility] and return patient home. Antonio/Dorcas phone number [phone].
== END 2024-03-24 09:43 | disposition home or self-care (01) ==
PROVIDERS: Emergency Provider Emergency Medicine; Family Provider Family Medicine
DX: S00.11XA Contusion of right eyelid and periocular area, initial encounter (principal); S80.212A Abrasion, left knee, initial encounter; S80.211A Abrasion, right knee, initial encounter; I48.91 Unspecified atrial fibrillation; I45.10 Unspecified right bundle-branch block; W18.2XXA Fall in (into) shower or empty bathtub, initial encounter; Z79.01 Long term (current) use of anticoagulants; Z79.899 Other long term (current) drug therapy
CPT/HCPCS: 70450; 72125; 80053; 80320; 81003; 81015; 83690; 85025; 87077; 87086; 87186; 93005; 96361; 96365; 99284; 99285